=== PATIENT | female | born 1955 | race Two or more races ===

== ENCOUNTER 2022-12-27 11:53 | Outpatient (CLI) | payer OTHER | END 2022-12-27 11:59 | disposition home or self-care (01) | LOC: SONOGRAMA 11:53 | PROVIDERS: ATTEND Pathology Anatomic Pathology & Clinical Pathology | DX: D44.0 Neoplasm of uncertain behavior of thyroid gland (principal); E07.9 Disorder of thyroid, unspecified; E04.1 Nontoxic single thyroid nodule ==